=== PATIENT | female | born 1960 | race Caucasian/White ===

== ENCOUNTER → 2016-03-30 | Outpatient (CLI) | payer BC ==
[~2016-03-30] MED LIST: DESO0.258 TOP; DOXY100C76 PO; FAMO20TA11 PO; HYDR-3419 PO; MULT-506 PO; OMEP20CA59 PO; PROP10TA7 PO
--- NOTE | 2016-03-30 15:22 | MAMMOGRAPHY REPORT ---
BILATERAL DIGITAL SCREENING MAMMOGRAM TOMOSYNTHESIS WITH CAD: 03/30/2016 CLINICAL HISTORY: Routine screening. Patient has no complaints. TECHNIQUE: Breast tomosynthesis in addition to standard 2D mammography was performed. Current study was also evaluated with a Computer Aided Detection (CAD) system. COMPARISON: Comparison is made to exams dated: 03/02/2015 ultrasound, 02/15/2015 mammogram, 01/26/2014 mammogram, 05/28/2012 mammogram, 05/17/2011 mammogram, and 02/28/2010 mammogram - [facility]. BREAST COMPOSITION: There are scattered areas of fibroglandular density in both breasts. FINDINGS: No suspicious masses, calcifications, or areas of architectural distortion are noted in e ither breast. There are expected post surgical changes including architectural distortion in the le ft 3:00 breast from prior surgical excision which yielded a radial scar. A linear scar marker denot es a scar on the left 3:00 breast. Scattered bilateral benign-appearing calcifications are again no carlee. IMPRESSION: ACR BI-RADS CATEGORY 2: BENIGN There is no mammographic evidence of malignancy. A 1 year screening mammogram is recommended. The p atient will receive written notification of the results. Approximately 10% of breast cancers are not detected with mammography. A negative mammographic repor t should not delay biopsy if a clinically suggestive mass is present. Sary Triana M.D. /:03/30/2016 15:16:17 [employer] Jewel Plate Assembler: Mely Loza, [facility] letter sent: Normal 1/2 BI-RADS Code: ACR BI-RADS Category 2: Benign
== END | disposition home or self-care (01) ==
LOC: C.MAMM 09:48
PROVIDERS: ATTEND Family Medicine
DX: Z12.31 Encounter for screening mammogram for malignant neoplasm of breast (principal)

== ENCOUNTER → 2016-06-06 | Day surgery (SDC) | payer BC ==
[~2016-06-06] VITALS: Ht 160 cm; Wt 51.4 kg
[~2016-06-06] MED LIST changes: +LIDOCAINE HCL 2% 2 ML VIAL (20MG/ML) ONE; +PROPOFOL IV EMULSION 10 MG/ML 20 ML VIAL IV ONE
[2016-06-06 14:17] VITALS: Ht 160 cm; Wt 51.4 kg
--- NOTE | 2016-06-06 14:46 | Endo History and Physical ---
History & Physical Date of Service: Jun 06, 2016. Chief Complaint: REFLUX Referring Physician: ANSON PARKINSON History of Present Illness 56 yo CF who presents for EGD secondary to GERD. Past Surgical History Hx Cardiac Surgery: No Hx Internal Defibrillator: No Hx Pacemaker: No Hx Abdominal Surgery: Yes (D&C, LAPAROSCOPY) Hx of Implantable Prosthesis: No Hx Cancer Surgery: No Hx Thoracic Surgery: No Hx Orthopedic: No Hx Urinary Tract Surgery: No Family History IBD Social History Smoking Status: Never Smoker Hx Substance Use: No Hx Alcohol Use: Yes (RARELY) Allergies Coded Allergies: Sulfamethoxazole w/Trimethoprim (Verified Allergy, Intermediate, hives, 02/10) Moxifloxacin (Verified Allergy, Unknown, SHAKINGS, 06/06/16) Penicillins (Unverified Allergy, Unknown, HIVES, 06/06/16) Current Medications Reported Home Medications Medications Dose Route/Sig Max Daily Dose Days Date Category Pepcid (Famotidine) 20 Mg Tab 20 Mg PO QPM 05/25/16 Reported Inderal (Propranolol HCl) 10 Mg Tab 10 Mg PO DAILY PRN 05/25/16 Reported Prilosec (Omeprazole) 20 Mg Capcr 20 Mg PO QAM 05/25/16 Reported Multivitamin (Multivitamins) Tab 1 Tab PO QAM 05/25/16 Reported Topicort (Desoximetasone) 0.25 % Oin 1 Appln TOP BID PRN 05/25/16 Reported Vital Signs Weight (Kilograms): 51.36 Height (Feet): 5 Height (Inches): 3 Date Time Temp Pulse Resp B/P Pulse Ox O2 Delivery O2 Flow Rate FiO2 06/06/16 14:23 36.7 73 20 115/58 100 Room Air Physical Exam General Appearance: WD/WN, no apparent distress Respiratory/Chest: Auscultation: breath sounds normal Cardiovascular: Heart Auscultation: RRR Abdomen: Bowel Sounds: normal Inspection & Palpation: soft, non-distended, no tenderness, guarding & rebound Assessment and Plan Assessment: 56 yo CF who presents for EGD secondary to GERD. Plan: Proceed with EGD.
--- NOTE | 2016-06-06 15:03 | Discharge Instructions ---
Endoscopy Patient Instructions Date / Procedure(s) Performed Jun 06, 2016. EGD Allergy Information Coded Allergies: Sulfamethoxazole w/Trimethoprim (Verified Allergy, Intermediate, hives, 02/10) Moxifloxacin (Verified Allergy, Unknown, SHAKINGS, 06/06/16) Penicillins (Unverified Allergy, Unknown, HIVES, 06/06/16) Discharge Date / Findings Jun 06, 2016. Gastric antrum biopsies Medication Instructions OK to resume all medications today as prescribed Reported Home Medications Medications Dose Route/Sig Max Daily Dose Days Date Category Pepcid (Famotidine) 20 Mg Tab 20 Mg PO QPM 05/25/16 Reported Inderal (Propranolol HCl) 10 Mg Tab 10 Mg PO DAILY PRN 05/25/16 Reported Prilosec (Omeprazole) 20 Mg Capcr 20 Mg PO QAM 05/25/16 Reported Multivitamin (Multivitamins) Tab 1 Tab PO QAM 05/25/16 Reported Topicort (Desoximetasone) 0.25 % Oin 1 Appln TOP BID PRN 05/25/16 Reported Provider Instructions Activity Restrictions - No exercising or heavy lifting for 24 hours. - Do not drink alcohol the day of the procedure. - Do not drive a car or operate machinery until the day after the procedure. - Do not make any important decisions or sign important papers in 24 hours after the procedure. Following Day: - Return to full activity which may include returning to work/school. Diet Start your diet with liquids and light foods (jello, soup, juice, toast). Then eat your usual diet if not nauseated. Treatment For Common After Affects For mild abdominal pain, bloating, or excessive gas: - Rest - Eat lightly - Lie on right side Follow-Up Information Follow-up with ANSON PARKINSON as scheduled Anesthesia Information What You Should Know You have had a procedure that required some medicine to reduce anxiety and discomfort. This treatment is called moderate sedation. After receiving the treatment, you may be sleepy, but you will be able to breathe on your own. The effects of the treatment may last for several hours. Follow these instructions along with Activity/Diet recommendations noted above: * Do NOT do anything where dizziness or clumsiness would be dangerous. * Rest quietly at home today, then you can be up and about tomorrow. * Have a responsible person stay with you the rest of today. * You may have had an I.V. today. If so, you may take the dressing off later today. Recommendations Call your doctor if: * Trouble breathing * Continuous vomiting for more than 24 hours * Temperature above 101 degrees * Severe abdominal pain or bloating * Pain not relieved by pain medicine ordered * There is increased drainage or redness from any incision * A large amount of rectal bleeding greater than 2-3 tablespoons. (If you had a polyp/s removed or have hemorrhoids, a small amount of blood - from the rectum is to be expected.) * You have any unanswered questions or concerns. IN THE EVENT OF A SERIOUS EMERGENCY, GO TO THE NEAREST EMERGENCY ROOM Your discharge instructions were prepared by provider Lai Garcia. Patient Instructions Signature Page Gisella Hernandez Patient (or Guardian) Signature/Date: I have read and understand the instructions given to me by my caregivers. Caregiver/RN/Doctor Signature/Date: The above-named patient and/or guardian has received patient instructions on this date. + Original Patient Signature Page (only) stays with chart. Please make copy for patient.
--- NOTE | 2016-06-06 15:09 | GI REPORT ---
Procedure Date: 06/06/2016 2:47 PM Procedure: Upper GI endoscopy Indications: Gastro-esophageal reflux disease Medicines: Monitored Anesthesia Care Complications: No immediate complications. Estimated Blood Loss: Estimated blood loss: none. Procedure: Pre-Anesthesia Assessment: - Prior to the procedure, a History and Physical was performed, and patient medications and allergies were reviewed. The patient's tolerance of previous anesthesia was also reviewed. The risks and benefits of the procedure and the sedation options and risks were discussed with the patient. All questions were answered, and informed consent was obtained. Prior Anticoagulants: The patient has taken no previous anticoagulant or antiplatelet agents. ASA Grade Assessment: II - A patient with mild systemic disease. After reviewing the risks and benefits, the patient was deemed in satisfactory condition to undergo the procedure. After obtaining informed consent, the endoscope was passed under direct vision. Throughout the procedure, the patient's blood pressure, pulse, and oxygen saturations were monitored continuously. The scope was introduced through the mouth, and advanced to the second part of duodenum. The upper GI endoscopy was accomplished without difficulty. The patient tolerated the procedure well. Findings: The esophagus was normal. The entire examined stomach was normal. Biopsies were taken with a cold forceps for histology. The examined duodenum was normal. Impression: - Normal esophagus. - Normal stomach. Biopsied. - Normal examined duodenum. Recommendation: - Resume previous diet. - Continue present medications. - Await pathology results. - Return to GI office as previously scheduled. Lai Garcia DO 06/06/2016 3:08:46 PM This report has been signed electronically. Note Initiated On: 06/06/2016 2:47 PM I attest to the content of the Intraoperative Record and orders documented therein, exceptions below
--- NOTE | 2016-06-06 15:32 | Anesthesiology Progress Note ---
Anesthesia Post Op Note Date & Time Jun 06, 2016 at 15:31 Vital Signs Pain Intensity: 0 Vital Signs Past 12 Hours Date Time Temp Pulse Resp B/P Pulse Ox O2 Delivery O2 Flow Rate FiO2 06/06/16 15:19 72 20 106/74 98 Room Air 06/06/16 15:04 72 20 98/51 97 Room Air 06/06/16 14:23 36.7 73 20 115/58 100 Room Air Notes Mental Status: alert / awake / arousable, participated in evaluation Pt Amnestic to Procedure: Yes Nausea / Vomiting: adequately controlled Pain: adequately controlled Airway Patency, RR, SpO2: stable & adequate BP & HR: stable & adequate Hydration State: stable & adequate Anesthetic Complications: no major complications apparent
[2016-06-06 15:34] VITALS: BP 117/72; PULSE 64; O2SAT 98
== END | disposition home or self-care (01) ==
LOC: C.GI 14:08
PROVIDERS: ATTEND Internal Medicine
DX: K21.9 Gastro-esophageal reflux disease without esophagitis (principal); K29.50 Unspecified chronic gastritis without bleeding

== ENCOUNTER → 2016-07-24 | Outpatient (CLI) | payer BC ==
[~2016-07-24] MED LIST changes: -LIDOCAINE HCL 2% 2 ML VIAL (20MG/ML) ONE; -PROPOFOL IV EMULSION 10 MG/ML 20 ML VIAL IV ONE
--- NOTE | 2016-07-24 11:39 | DIAGNOSTIC IMAGING REPORT ---
KUB CLINICAL HISTORY: Bilateral nephrolithiasis. Bilateral back pain COMPARISON STUDY: 10/20/2015 FINDINGS: Multiple small calcifications project over each kidney the largest of which measures 3 mm. The findings are consistent with bilateral nephrolithiasis. There are multiple pelvic basin calcifications including a new 3 mm left pelvic basin calcification. This could represent a distal left ureteral calculus. Correlation with the patient's site of pain is recommended IMPRESSION: 1. Bilateral nephrolithiasis 2. New 3 mm left pelvic basin calcification. This could represent a distal left ureteral calculus, and clinical correlation in this regard is advocated 3. No evidence of pathologic bowel dilatation Electronically signed by: Ntaan Nash M.D. 07/24/2016 11:38 AM Dictated Date/Time: 07/24/2016 11:36 AM
== END | disposition home or self-care (01) ==
LOC: C.RAD 11:08
PROVIDERS: ATTEND Nurse Practitioner Family
DX: N20.0 Calculus of kidney (principal); R93.8 Abnormal findings on diagnostic imaging of other specified body structures

== ENCOUNTER → 2016-08-10 | Outpatient (CLI) | payer BC ==
--- NOTE | 2016-08-10 09:28 | DIAGNOSTIC IMAGING REPORT ---
KUB CLINICAL HISTORY: UTI nephrocalcinosis COMPARISON STUDY: 07/24/2016 FINDINGS: Multiple bilateral renal calcifications. These appear to be similar as compared to the prior study. There are no new or interval findings. A distal left ureteral calculus appears to have passed. It potentially is within the bladder. IMPRESSION: Interval passage of a distal left ureteral calculus. Unchanging bilateral nephrocalcinosis. Electronically signed by: Eben Chambers M.D. 08/10/2016 9:27 AM Dictated Date/Time: 08/10/2016 9:26 AM
== END | disposition home or self-care (01) ==
LOC: C.RAD 09:08
PROVIDERS: ATTEND Urology
DX: N39.0 Urinary tract infection, site not specified (principal); N20.0 Calculus of kidney

== ENCOUNTER → 2016-08-13 | Outpatient (CLI) | payer BC | END | disposition home or self-care (01) | LOC: C.LABSPEC 17:06 | PROVIDERS: ATTEND Nurse Practitioner Family | DX: N20.0 Calculus of kidney (principal) ==

== ENCOUNTER → 2016-08-23 | Outpatient (CLI) | payer BC ==
[~2016-08-23] MED LIST changes: -FAMO20TA11 PO; -MULT-506 PO; -OMEP20CA59 PO
--- NOTE | 2016-08-23 16:42 | DIAGNOSTIC IMAGING REPORT ---
KUB CLINICAL HISTORY: Nephrolithiasis. COMPARISON STUDY: CT of the abdomen and pelvis February 08, 2014 and KUB August 10, 2016. FINDINGS: A 4 mm left pelvic calcification suggests a ureterovesical junction calculus. These are unchanged. Several right renal calculi measure up to 4 mm. There is a punctate left renal calculus. IMPRESSION: 1. 4 mm left ureterovesical junction calculus. 2. No change in right-sided nephrolithiasis and a suspected punctate left renal calculus. Electronically signed by: Jeff Harrison M.D. 08/23/2016 4:41 PM Dictated Date/Time: 08/23/2016 4:29 PM
== END | disposition home or self-care (01) ==
LOC: C.RAD 15:43
PROVIDERS: ATTEND Nurse Practitioner Family
DX: N20.0 Calculus of kidney (principal); N20.1 Calculus of ureter

== ENCOUNTER → 2016-08-24 | Day surgery (SDC) | payer BC ==
--- NOTE | 2016-08-15 14:02 | DIAGNOSTIC IMAGING REPORT ---
CHEST 2 VIEWS ROUTINE HISTORY: N20.0 [id number] COMPARISON: Chest 01/15/2014. FINDINGS: The lungs are clear. Cardiac silhouette is normal in size. No pleural effusions. No pneumothorax. IMPRESSION: No acute process. Electronically signed by: Jaiden Dawson M.D. 08/15/2016 2:00 PM Dictated Date/Time: 08/15/2016 1:59 PM
[2016-08-15 14:49] LABS: BASO % 0.7 %; BASO ABS # 0.03 K/uL (0-0.2); COMPLETE YES; EOS % 5.2 %; LYMPH % 32.3 %; LYMPH ABS # 1.31 K/uL (1.2-3.4); MEAN CELL VOLUME 93.2 fL (80-100); MEAN CORPUSCULAR HGB CONC 34.4 g/dl (32-36); MEAN PLATELET VOLUME 11.3 fL (7.4-10.4); MONO % 5.9 %; NEUT % 55.9 %; PLATELET COUNT 199 K/uL (130-400); WHITE BLOOD COUNT 4.05 K/uL (4.8-10.8)
[2016-08-15 14:57] LABS: BLOOD UREA NITROGEN 12 mg/dl (7-18); CARBON DIOXIDE 29 mmol/L (21-32); CHLORIDE 109 mmol/L (98-107); CREATININE 0.96 mg/dl (0.60-1.20); GLUCOSE 81 mg/dl (70-99); POTASSIUM 4.4 mmol/L (3.5-5.1); SODIUM 144 mmol/L (136-145)
[2016-08-17 08:12] VITALS: Ht 160 cm; Wt 50.5 kg
[~2016-08-24] VITALS: Ht 160 cm; Wt 50.5 kg
[~2016-08-24] MED LIST changes: +ATROPINE SULFATE 0.1 MG/ML 5ML SYR IV PRN; +CIPROFLOXACIN 400MG / D5W IV SCH; +DEXAMETHASONE SOD INJ 4 MG/ML VIAL ONE; +FENTANYL CITRATE INJ 50 MCG/1 ML 2 ML VIAL IV PRN; +FENTANYL CITRATE INJ 50 MCG/1 ML 2 ML VIAL ONE; +HYDROCODONE/ACETAMOPHEN 5/325MG TAB ONE; +LACTATED RINGER'S 1000ML 1,000 ML IV SCH; +LIDOCAINE HCL 2% 2 ML VIAL (20MG/ML) ONE; +MIDAZOLAM HCL 1 MG/ML 2ML VIAL ONE; +NURSING VERBAL MED ORDER ONE; +ONDANSETRON INJ 2 MG/ML 2 ML VIAL IV PRN; +ONDANSETRON INJ 2 MG/ML 2 ML VIAL ONE; +PROMETHAZINE HCL INJ 6.25 MG in SODIUM CHLORIDE 0.9% 50ML 50 ML IV PRN; +PROPOFOL IV EMULSION 10 MG/ML 20 ML VIAL IV ONE
--- NOTE | 2016-08-24 07:22 | History & Physical Bridge - SC ---
H&P Re-Evaluation Bridge Note: I have examined the patient, reviewed the History & Physical and in the interval since the performance of the History & Physical I have noted the following changes of clinical significance: No changes noted
--- NOTE | 2016-08-24 08:09 | [facility] Operative Report ---
Operative Report Operative Date Aug 24, 2016. Pre-Operative Diagnosis Right Ureteral Stone Post-Operative Diagnosis Same Procedure(s) Performed Right Extracorporeal Shock Wave Lithotripsy Surgeon Dr. Bettye Russell Salesperson [employer] Surgeon(s) None Estimated Blood Loss 0 Findings possible persistent l lower uretero vesical junction stone Specimens None Description of Procedure 2500 shocks given to r kidney the majority at level5 . The stone appeared to fragment after going to level 5 I attest to the content of the Intraoperative Record and any orders documented therein. Any exceptions are noted below.
--- NOTE | 2016-08-24 08:10 | Discharge Instructions-SurgCtr ---
Discharge Instructions Date of Service Aug 24, 2016. Visit Reason for Visit: Stones Discharge Discharge Diagnosis / Problem: r renal stone Discharge Goals Goal(s): Increase independence, Improve disease control Activity Recommendations Activity Limitations: resume your previous activity Anesthesia . Post Anesthesia Instructions: If you have had General Anesthesia or IV Sedation: * Do not drive today. * Resume driving when surgeon permits. * Do not make important decisions or sign legal documents today. * Call surgeon for: 1. Temperature elevations greater than 101 degrees F. 2. Uncontrollable pain. 3. Excessive bleeding. 4. Persistent nausea and vomiting. 5. Medication intolerance (nausea, vomiting or rash). * For nausea and vomiting use only clear liquids such as: tea, soda, bouillon until nausea subsides, then gradually increase diet as tolerated. * If you have any concerns or questions, call your surgeon's office. If physician is unavailable and it is an emergency, call 911 or go to the nearest emergency room. . Diet Recommendations Home Diet: resume previous diet Procedures Procedures Performed: Right Extracorporeal Shock Wave Lithotripsy Pending Studies Studies pending at discharge: no Medical Emergencies . Who to Call and When: Medical Emergencies: If at any time you feel your situation is an emergency, please call 911 immediately. . Non-Emergent Contact Non-Emergency issues call your: Urologist . . "Provider Documentation" section prepared by Carlos Russell. .
--- NOTE | 2016-08-24 08:44 | [facility] Post Operative Brief Note ---
Immediate Operative Summary Operative Date Aug 24, 2016. Pre-Operative Diagnosis Right Ureteral Stone Post-Operative Diagnosis Same Procedure(s) Performed Right Extracorporeal Shock Wave Lithotripsy Surgeon Dr. Bettye Russell Child And Adolescent Therapist Surgeon(s) None Estimated Blood Loss 0 Findings stone appeared to fragment Specimens None
[2016-08-24 09:04] VITALS: TEMP 36.4
--- NOTE | 2016-08-24 09:28 | Anesthesia Progress Nt - [facility] ---
Anesthesia Post Op Note Date & Time Aug 24, 2016 at 09:28 Vital Signs Pain Intensity: 3.0 Vital Signs Past 12 Hours Date Time Temp Pulse Resp B/P (MAP) Pulse Ox O2 Delivery O2 Flow Rate FiO2 08/24/16 09:04 36.4 63 16 108/67 (81) 97 Room Air 08/24/16 08:56 103/65 08/24/16 08:53 61 12 08/24/16 08:53 59 12 97 08/24/16 08:51 104/61 08/24/16 08:48 59 7 08/24/16 08:48 59 7 97 08/24/16 08:47 60 10 08/24/16 08:47 59 10 97 08/24/16 08:47 36.6 59 12 100/64 97 Room Air 08/24/16 08:46 100/64 08/24/16 08:42 55 13 100 08/24/16 08:42 53 13 08/24/16 08:41 99/63 08/24/16 08:37 53 11 100 08/24/16 08:37 51 11 08/24/16 08:36 106/64 08/24/16 08:32 54 10 08/24/16 08:32 55 10 100 08/24/16 08:31 103/63 08/24/16 08:30 59 15 08/24/16 08:30 59 15 100 08/24/16 08:26 103/63 08/24/16 08:25 54 10 100 08/24/16 08:25 54 10 08/24/16 08:21 104/69 08/24/16 08:20 58 12 08/24/16 08:20 61 12 100 08/24/16 08:16 110/64 08/24/16 08:15 57 14 08/24/16 08:15 56 14 100 08/24/16 08:11 108/75 08/24/16 08:10 36.4 68 12 108/75 99 Diffusion Mask 6 08/24/16 06:43 36.9 73 16 102/67 (79) 100 Room Air Notes Mental Status: alert / awake / arousable, participated in evaluation Pt Amnestic to Procedure: Yes Nausea / Vomiting: adequately controlled Pain: adequately controlled Airway Patency, RR, SpO2: stable & adequate BP & HR: stable & adequate Hydration State: stable & adequate Anesthetic Complications: no major complications apparent
[2016-08-24 09:36] VITALS: BP 109/67; PULSE 58; O2SAT 100
== END | disposition home or self-care (01) ==
LOC: X.SURG 06:11
PROVIDERS: ATTEND Urology
DX: N20.1 Calculus of ureter (principal); E78.00 Pure hypercholesterolemia, unspecified; K21.9 Gastro-esophageal reflux disease without esophagitis; M10.9 Gout, unspecified; Z79.899 Other long term (current) drug therapy

== ENCOUNTER → 2016-08-31 | Outpatient (CLI) | payer BC ==
[~2016-08-31] MED LIST changes: -ATROPINE SULFATE 0.1 MG/ML 5ML SYR IV PRN; -CIPROFLOXACIN 400MG / D5W IV SCH; -DEXAMETHASONE SOD INJ 4 MG/ML VIAL ONE; -FENTANYL CITRATE INJ 50 MCG/1 ML 2 ML VIAL IV PRN; -FENTANYL CITRATE INJ 50 MCG/1 ML 2 ML VIAL ONE; -HYDROCODONE/ACETAMOPHEN 5/325MG TAB ONE; -LACTATED RINGER'S 1000ML 1,000 ML IV SCH; -LIDOCAINE HCL 2% 2 ML VIAL (20MG/ML) ONE; -MIDAZOLAM HCL 1 MG/ML 2ML VIAL ONE; -NURSING VERBAL MED ORDER ONE; -ONDANSETRON INJ 2 MG/ML 2 ML VIAL IV PRN; -ONDANSETRON INJ 2 MG/ML 2 ML VIAL ONE; -PROMETHAZINE HCL INJ 6.25 MG in SODIUM CHLORIDE 0.9% 50ML 50 ML IV PRN; -PROPOFOL IV EMULSION 10 MG/ML 20 ML VIAL IV ONE
--- NOTE | 2016-08-31 15:54 | DIAGNOSTIC IMAGING REPORT ---
IVP W/OR W/O TOMOGRAMS CLINICAL HISTORY: Nephrolithiasis. Possible ureteral calculi. Recent lithotripsy. COMPARISON STUDY: KUB dated 08/23/2016 FINDINGS: The renal shadows are partially obscured by overlying bowel gas and fecal material. The previously identified renal calculi are difficult to visualize. There are multiple pelvic basin calcifications. The patient was injected with 100 cc of Optiray 320. The 1 minute film reveals prompt bilateral nephrograms. The right kidney measured 10.9 cm in length. The left kidney measured 10.8 cm in length. There is minimal fullness of each renal collecting system right greater than left. There are bilateral standing ureteral columns. There are bilateral UVJ calculi measuring 3 mm on the right and 4 mm in the left. There is a small post void residual. IMPRESSION: Bilateral distal ureteral calculi measuring 3 mm in the right and 4 mm in the left. Minor secondary obstructive changes. Electronically signed by: Natan Nash M.D. 08/31/2016 3:53 PM Dictated Date/Time: 08/31/2016 3:49 PM
== END | disposition home or self-care (01) ==
LOC: C.RAD 14:02
PROVIDERS: ATTEND Urology
DX: N20.0 Calculus of kidney (principal); N20.1 Calculus of ureter

== ENCOUNTER → 2016-09-03 | Outpatient (CLI) | payer BC ==
--- NOTE | 2016-09-03 18:08 | DIAGNOSTIC IMAGING REPORT ---
KUB CLINICAL HISTORY: N20.0 Nephrolithiasis COMPARISON STUDY: 08/31/2016 FINDINGS: The renal shadows are partially obscured by overlying bowel gas and fecal material. There are equivocal punctate right renal calculi. The previously suspected bilateral distal ureteral calculi are no longer visualized and presumably have passed. IMPRESSION: 1. Equivocal punctate right renal calculi 2. Apparent interval passage of the previously identified bilateral distal ureteral calculi Electronically signed by: Natan Nash M.D. 09/03/2016 6:07 PM Dictated Date/Time: 09/03/2016 6:05 PM
== END | disposition home or self-care (01) ==
LOC: C.RAD 17:32
PROVIDERS: ATTEND Nurse Practitioner Family
DX: N20.0 Calculus of kidney (principal)

== ENCOUNTER → 2016-09-04 | Outpatient (CLI) | payer BC | END | disposition home or self-care (01) | LOC: C.LABSPEC 17:12 | PROVIDERS: ATTEND Urology | DX: N20.0 Calculus of kidney (principal) ==

== ENCOUNTER → 2017-04-02 | Outpatient (CLI) | payer OTHER ==
[~2017-04-02] MED LIST changes: -HYDR-3419 PO
--- NOTE | 2017-04-03 14:02 | MAMMOGRAPHY REPORT ---
BILATERAL DIGITAL SCREENING MAMMOGRAM WITH CAD: 04/02/2017 CLINICAL HISTORY: Routine screening. Patient has no complaints. TECHNIQUE: Bilateral CC and MLO views were obtained. Current study was also evaluated with a Compute r Aided Detection (CAD) system. COMPARISON: Comparison is made to exams dated: 03/30/2016 mammogram, 03/02/2015 mammogram, 03/02/2015 ultr asound, 02/15/2015 mammogram, 01/26/2014 mammogram, and 05/28/2012 mammogram - [facility] ter. BREAST COMPOSITION: There are scattered areas of fibroglandular density in both breasts. FINDINGS: A linear scar marker overlies the lateral left breast. There is stable expected architectu ral distortion at the site of prior surgical excision in the lateral left breast. No new suspicious mass, architectural distortion or cluster of microcalcifications is seen. IMPRESSION: ACR BI-RADS CATEGORY 1: NEGATIVE There is no mammographic evidence of malignancy. A 1 year screening mammogram is recommended. The pa tient will receive written notification of the results. Approximately 10% of breast cancers are not detected with mammography. A negative mammographic report should not delay biopsy if a clinically suggestive mass is present. Saida Martinez M.D. ay/:04/02/2017 15:22:09 Supervisor Area: Jana FELDMANR, M, [facility] letter sent: Normal 1/2 BI-RADS Code: ACR BI-RADS Category 1: Negative
== END | disposition home or self-care (01) ==
LOC: C.MAMM 08:59
PROVIDERS: ATTEND Family Medicine
DX: Z12.31 Encounter for screening mammogram for malignant neoplasm of breast (principal)

== ENCOUNTER → 2017-05-01 | Outpatient (CLI) | payer OTHER ==
--- NOTE | 2017-05-01 11:42 | DIAGNOSTIC IMAGING REPORT ---
KUB CLINICAL HISTORY: URGE INCONTINENCE OF URINE COMPARISON STUDY: 09/03/2016 FINDINGS: The renal shadows are partially obscured overlying bowel gas and fecal material. No renal calculi are visualized. There are no calcifications suspicious for ureteral calculi. Pelvic basin calcifications remain similar and likely represent phleboliths. There is no pathologic bowel dilatation. There is a moderate amount stool within the colon. IMPRESSION: No urinary tract calculi identified on conventional radiographic imaging Electronically signed by: Natan Nash M.D. 05/01/2017 11:41 AM Dictated Date/Time: 05/01/2017 11:40 AM
== END | disposition home or self-care (01) ==
LOC: C.RAD 11:23
PROVIDERS: ATTEND Urology
DX: N39.41 Urge incontinence (principal)